=== PATIENT | female | born 1955 | race Two or more races ===

== ENCOUNTER 2017-04-26 08:07 | Day surgery (SDC) | payer MEDICAID ==
[2017-04-26] VITALS (9 sets, daily range): BP systolic 101–131; BP diastolic 52–90
[~2017-04-26] VITALS: Ht 157.5 cm; Wt 75.7 kg
[~2017-04-26 08:07] MED LIST: ANASTROZOLE1 MG PO; ASPIR-LOW81 MG ORAL; BIOTIN10 MG PO; CELEXA20 MG ORAL; FOLIC ACID1 MG ORAL; METOPROLOL SUCC25 MG ORAL; PRAVASTATIN SOD20 M1 ORAL
[2017-04-26] MEDS ORDERED: Propofol 200mg/20ml IV ONE (08:08)
[2017-04-26] MEDS ORDERED: LR 1000ml ONE (08:08)
--- NOTE | 2017-04-26 09:26 | Pre-Procedure Note/Attestation ---
Pre-Procedure Note/Attestation Complete Prior to Procedure Planned Procedure: not applicable Procedure Narrative: esophagogastroduodenoscopy and colonocopy Indications for Procedure Pre-Operative Diagnosis: screening colon, GERD Attestation I attest that I discussed the nature of the procedure; its benefits; risks and complications; and alternatives (and the risks and benefits of such alternatives ), prior to the procedure, with the patient (or the patient's legal contracts representative). I attest that, if there was a reasonable possibility of needing a blood transfusion, the patient (or the patient's legal contracts representative) was given the [facility] standardized written summary, pursuant to the [place] Blood Safety Act ([place] Health and Safety Code # 1645, as amended). I attest that I re-evaluated the patient just prior to the surgery and that there has been no change in the patient's H&P, except as documented below: MARISEL CONRAD Apr 26, 2017 09:26
--- NOTE | 2017-04-26 09:28 | Short Stay Surgery H&P ---
History of Present Illness History of Present Illness Chief Complaint screening colon , GERD HPI Delilah Marcelino is a 61 year old female who was admitted on for Gerd,Colon Screening Patient History Allergies: Coded Allergies: PENICILLINS (Verified Allergy, Mild, 04/26/17) rash PAST MEDICAL HISTORY: (1) Breast cancer (2) HTN (hypertension) (3) Hyperlipemia Past Surgeries: Social History: Medication History Scheduled Anastrozole* (Arimidex*), 1 MG PO DAILY, (Reported) Aspirin* (Aspir-Low*), 81 MG ORAL DAILY, (Reported) Biotin (Biotin), 40 MG PO DAILY, (Reported) Citalopram Hydrobromide* (Celexa*), 20 MG ORAL DAILY, (Reported) Folic Acid* (Folic Acid*), 1 MG ORAL DAILY, (Reported) Metoprolol Succinate* (Metoprolol Succinate*), 12.5 MG ORAL DAILY, (Reported) Pravastatin Sod* (Pravastatin Sod*), 40 MG ORAL BEDTIME, (Reported) Review of Systems Cardiovascular: Reports: no symptoms Respiratory: Reports: no symptoms Skeletal: Reports: no symptoms Gastrointestinal: Reports: no symptoms Genitourinary: Reports: no symptoms Neurologic: Reports: no symptoms Endocrine: Reports: no symptoms Hematologic: Reports: no symptoms Physical Exam Vital Signs Last Vital Signs Date Time Temp Pulse Resp B/P (MAP) Pulse Ox O2 Delivery O2 Flow Rate FiO2 04/26/17 08:47 98.2 92 20 131/90 99 Room Air Skin: normal HENT: normal Heart: normal Lungs: normal Abdomen: normal Extremities: normal Plan Plan of Care esophagogastroduodenoscopy and colonoscopy Final Diagnosis: Attestation Are the patient's medical conditions optimized for surgery? Attestation Response: yes MARISEL CONRAD Apr 26, 2017 09:28
[2017-04-26] MEDS ORDERED: LR 1000ml 1,000 ML IVLG SCH (09:58)
[2017-04-26] MEDS ORDERED: fentaNYL 100 mcg/2 mL IV PRN (10:00)
--- NOTE | 2017-04-26 10:04 | Anethesia Preoperative Eval ---
Anesthesia Pre-op PMH/ROS General Date of Evaluation: Apr 26, 2017 Time of Evaluation: 09:40 Anesthesiologist: Gustavo ASA Score: ASA 3 Mallampati Score Class I : Soft palate, uvula, fauces, pillars visible Class II: Soft palate, uvula, fauces visible Class III: Soft palate, base of uvula visible Class IV: Only hard plate visible Mallampati Classification: Class II Surgeon: Ladi Diagnosis: GERD, colon screening Surgical Procedure: EGD, colonoscopy Allergies: Coded Allergies: PENICILLINS (Verified Allergy, Mild, 04/26/17) rash Medications: see eMAR Past Medical History Cardiovascular: Reports: HTN Gastrointestinal/Genitourinary: Reports: GERD PMH Narrative: Breast CA, GERD, HTN PSxH Narrative: Mastectomy Anesthesia Pre-op Phys. Exam Physician Exam Last Vital Signs Date Time Temp Pulse Resp B/P (MAP) Pulse Ox O2 Delivery O2 Flow Rate FiO2 04/26/17 08:47 98.2 92 20 131/90 99 Room Air Constitutional: NAD Neurologic: CN 2-12 intact Cardiovascular: RRR, no M/R/G Respiratory: CTA Gastrointestinal: S/NT/ND Airway Exam Mallampati Score: Class II MO: full ROM: full Teeth: intact Anesthesia Pre-op A/P Labs WNL Studies Pre-op Studies: EKG - NSR Risk Assessment & Plan Assessment: HTN, breast CA now for EGD, colonoscopy Plan: GA, TIVA Status Change Before Surgery: No Pre-Antibiotics Drug: None JEZ SOSA M.D. Apr 26, 2017 10:04
--- NOTE | 2017-04-26 10:05 | Immediate Post-Op Evaluation ---
Immediate Post-Op Evalulation Immediate Post-Op Evalulation Procedure: EGD, colonoscopy Date of Evaluation: Apr 26, 2017 Time of Evaluation: 10:25 IV Fluids: 350 Blood Pressure Systolic: 104 Blood Pressure Diastolic: 52 Pulse Rate: 74 Respiratory Rate: 17 O2 Sat by Pulse Oximetry: 100 Temperature (Fahrenheit): 98.2 Pain Score (1-10): 0 Nausea: No Vomiting: No Complications No complication Patient Status: awake, patent, none Hydration Status: adequate Drug: None JEZ SOSA M.D. Apr 26, 2017 10:05
--- NOTE | 2017-04-26 10:18 | Endoscopy Procedure Note ---
Endoscopy Procedure Note Indication for Procedure: screening colon, GERD Procedures Performed: EGD, colonoscopy Operative Findings/Diagnosis: gastritis,one polyp Specimen: yes Pt Tolerated Procedure Well: Yes Estimated Blood Loss: none Anesthesiologist: sonia Anesthesia: MAC Implant(s) used?: No 50 yrs or older w/o bx or poly: No 10yrs. F/U not recommended: Yes If not recommended, why?: Above average risk 10 yrs. F/U needed: Yes 18 years or older w/prev. colo: Yes <3yrs. since last colonoscopy: No MARISEL CONRAD Apr 26, 2017 10:18
--- NOTE | 2017-04-26 10:29 | 48 Hour Post Anesthesia Eval ---
Post Anesthesia Evaluation Procedure: EGD, colonoscopy Date of Evaluation: Apr 26, 2017 Time of Evaluation: 10:45 Blood Pressure Systolic: 108 0: 68 Pulse Rate: 74 Respiratory Rate: 18 O2 Sat by Pulse Oximetry: 100 Airway: patent Nausea: No Vomiting: No Pain Intensity: 0 Hydration Status: adequate Cardiopulmonary Status: Stable Mental Status/LOC: patient returned to baseline Follow-up Care/Observations: As per surgery Post-Anesthesia Complications: No anesthetic complication Follow-up care needed: N/A JEZ SOSA M.D. Apr 26, 2017 10:29
--- NOTE | 2017-04-26 15:15 | Procedure Note ---
DATE OF PROCEDURE: 04/26/2017 SURGEON: Frank Bledsoe M.D. REFERRING PHYSICIAN: Tobi Edwards M.D. PROCEDURE: Upper endoscopy with biopsy and colonoscopy with biopsy. ANESTHESIOLOGIST: Jamison Chen M.D. INSTRUMENT: Olympus adult flexible upper endoscope and colonoscope. INDICATION: 1. Screening colonoscopy evaluation. 2. Chronic GERD. The procedure, risks, benefits, and possible consequences, including hemorrhage, aspiration, perforation and infection, and alternative treatments, were explained to the patient/legal guardian by Dr. Frank Bledsoe and the patient/legal guardian understood and accepted these risks. DESCRIPTION OF PROCEDURE: After informed consent was obtained and the patient was adequately sedated, first Olympus upper endoscope was advanced from the mouth into the second portion of the duodenum and retroflexion was performed in the stomach. The patient had numerous erosions in the antrum and the peripyloric region. Biopsy from 1 of these erosions was obtained. Also, random biopsy from the antrum was obtained to rule out H. pylori infection. At this time, the upper endoscope was retrieved and the patient was turned over for colonoscopy. First, a rectal exam was performed, which was positive for external and internal hemorrhoids. Then, the scope was advanced from rectum into the cecum documented by the appendiceal orifice, ileocecal valve, and right upper quadrant palpation. Quality of prep was very good. The patient had one small polyp in the transverse colon, removed with the cold biopsy forceps technique. Otherwise, the rest of the examination was grossly within normal limits. No obvious mass or any other polyp was seen. Retroflexion of rectum showed evidence of internal hemorrhoids. SUMMARY OF FINDINGS: 1. Multiple antral erosions. 2. Gastritis, status post biopsy. 3. One colonic polyp removed. See above for details. 4. Internal and external hemorrhoids. RECOMMENDATIONS: Follow up biopsy results and treat accordingly. I want to thank Dr. Edwards for this kind referral. Frank Bledsoe M.D. DR: NICOLAS JOB#: [id number] CC: Tobi Edwards M.D.; Fax#: [phone]
--- NOTE | 2017-04-27 17:57 | Cardiology Report ---
APPROVED REPORT EKG Measurement Heart [id number] Normal sinus rhythm Normal ECG
== END 2017-04-26 11:55 | disposition home or self-care (01) ==
LOC: GAS 08:07
DX: Z12.11 Encounter for screening for malignant neoplasm of colon (principal); K21.9 Gastro-esophageal reflux disease without esophagitis; K29.70 Gastritis, unspecified, without bleeding; K63.5 Polyp of colon; K64.4 Residual hemorrhoidal skin tags; K64.8 Other hemorrhoids; I10 Essential (primary) hypertension; E78.5 Hyperlipidemia, unspecified; Z79.82 Long term (current) use of aspirin; Z88.0 Allergy status to penicillin; Z90.10 Acquired absence of unspecified breast and nipple; Z85.3 Personal history of malignant neoplasm of breast; D12.3 Benign neoplasm of transverse colon; B96.81 Helicobacter pylori [H. pylori] as the cause of diseases classified elsewhere
CPT/HCPCS: 43239; 45380; 93005; J2704; J7120; Z7512; 94003; 94150

== ENCOUNTER 2017-08-09 13:28 | Outpatient (CLI) | payer MEDICAID | END 2017-08-09 14:00 | disposition home or self-care (01) | LOC: PAN 13:28 | DX: B96.81 Helicobacter pylori [H. pylori] as the cause of diseases classified elsewhere (principal) | CPT/HCPCS: 83013 ==

== ENCOUNTER 2017-11-29 13:08 | Outpatient (CLI) | payer MEDICAID | END 2017-11-29 13:42 | disposition home or self-care (01) | LOC: PAN 13:08 | DX: R10.9 Unspecified abdominal pain (principal) | CPT/HCPCS: 83013 ==